=== PATIENT | male | born 1965 | race Caucasian/White ===

== ENCOUNTER 2024-02-22 16:15 | Inpatient (IN) | payer OTHER ==
[2024-02-22 17:44] VITALS: BMI 23.8
[2024-02-22] MEDS ORDERED: IBUPROFEN 400 MG TABLET (FP) PO PRN (20:17)
[2024-02-22] MEDS ORDERED: MAG HYDROX/AL HYDROX/SIMETH 30 ML UNIT-DOSE CUP PO PRN (20:17)
[2024-02-22] MEDS ORDERED: NALOXONE HCL (KLOXXADO) 8 MG SPRAY NS PRN (20:17)
[2024-02-22] MEDS ORDERED: guaiFENesin 600 MG TABLET.ER (FP) PO PRN (20:17)
[2024-02-22] MEDS ORDERED: NALOXONE HCL 0.4 MG/ML VIAL IM PRN (20:17)
[2024-02-22] MEDS ORDERED: LOPERAMIDE HCL 2 MG CAPSULE PO PRN (20:17)
[2024-02-22] MEDS ORDERED: BENZONATATE 200 MG CAPSULE PO PRN (20:17)
[2024-02-22] MEDS ORDERED: BENZOCAINE/MENTHOL (CHLORASEPTIC ) LOZENGE MM PRN (20:17)
[2024-02-23] MEDS ORDERED: TUBERCULIN PPD 5 TU/0.1ML SYRINGE (IN PATIENT USE ONLY) ID ONE (00:18)
[2024-02-23] MEDS ORDERED: MELATONIN 5 MG TABLETS ONE ×2 (00:55→00:58)
[2024-02-23] MEDS: MELATONIN 5 MG TABLETS PO SCH (01:01)
[2024-02-23] MEDS: THIAMINE HCL 100 MG TABLET (FP) PO SCH (01:01)
[2024-02-23] MEDS: CLOTRIMAZOLE 1% CREAM TP SCH (01:16)
[2024-02-23] MEDS: methaDONE 40 MG, methaDONE 30 MG PO SCH (07:36)
[2024-02-23] MEDS: methaDONE HCL 10 MG TABLET PO SCH (07:40)
[2024-02-23] MEDS ORDERED: ALBUTEROL SO4 HFA INHALER IH PRN (08:11)
[2024-02-23] MEDS: PRENATAL VITAMINS W/ FOLIC ACID TABLET (FP) PO SCH (09:09)
[2024-02-23] MEDS: TUBERCULIN PPD 5 TU/0.1ML SYRINGE (IN PATIENT USE ONLY) ID ONE (09:11)
[2024-02-23] MEDS ORDERED: EMPAGLIFLOZIN (JARDIANCE) 10 MG TABLET PO SCH (10:00)
[2024-02-23 12:40] LABS: HEMOGLOBIN 14.5 GM/dL (11.7-16.9); MCHC 32.9 g/dl (32.0-35.9); MEAN CELL VOLUME 94.3 fl (80-96); MEAN PLT VOLUME 9.7 fl (7.5-11.1); PLATELET COUNT 136 10^3/uL (134-434); RBC 4.67 M/mm3 (4.00-5.60); RDW 13.3 % (11.9-15.9); WHITE BLOOD COUNT 4.3 K/mm3 (4.0-10.0)
[2024-02-23 12:43] LABS: POTASSIUM 3.9 mmol/L (3.5-5.1)
[2024-02-23 12:50] LABS: ALBUMIN 3.2 g/dl (3.4-5.0)
[2024-02-23 12:51] LABS: CALCIUM 8.9 mg/dL (8.5-10.1)
[2024-02-23 12:52] LABS: BLOOD UREA NITROGEN 20.7 mg/dL (7-18)
[2024-02-23 12:54] LABS: CREATININE 1.2 mg/dL (0.55-1.3); TOT PROT 6.6 g/dl (6.4-8.2)
[2024-02-23 12:55] LABS: BILIRUBIN,TOTAL 0.7 mg/dL (0.2-1)
[2024-02-23 13:10] LABS: SYPHILIS W/ RPR CONF NON-REACTIVE (NONREACTIVE)
[2024-02-23] MEDS: IBUPROFEN 600 MG TABLET (FP) PO PRN (15:41)
[2024-02-24 12:19] LABS: PH,URINE 5.5 (5.0-8.0); URINE APPEARANCE CLEAR; URINE BILIRUBIN NEGATIVE (NEGATIVE); URINE COLOR YELLOW; URINE GLUCOSE (UA) NEGATIVE (NEGATIVE); URINE KETONE NEGATIVE (NEGATIVE); URINE LEUK ESTERASE NEGATIVE (NEGATIVE); URINE NITRITE NEGATIVE (NEGATIVE); URINE PROTEIN NEGATIVE (NEGATIVE); URINE UROBILINOGEN 0.2 mg/dL (0.2-1.0)
[2024-02-25] MEDS: ACETAMINOPHEN 325 MG TABLET (FP) PO PRN (06:19)
[2024-02-25] MEDS ORDERED: cloNIDine HCL 0.1 MG TABLET PO PRN (08:27)
[2024-02-25] MEDS: cloNIDine HCL 0.1 MG TABLET PO PRN (09:29)
[2024-02-26] MEDS: BENZOCAINE 20 % GEL TUBE MM PRN (10:39)
[2024-02-26] MEDS: FUROSEMIDE 20 MG TABLET (FP) PO SCH (15:02)
[2024-02-29] MEDS: MAGNESIUM HYDROX 2400MG/30ML ORAL SUSPENSION 30 ML CUP PO PRN (12:44)
[2024-02-29] MEDS: POLYETHYLENE GLYCOL (HEALTHYLAX) 3350 17 GM PACKET PO PRN (21:14)
[2024-03-01] MEDS: DOCUSATE SODIUM 100 MG CAPSULE (FP) PO PRN (03:14)
[2024-03-01] MEDS: FUROSEMIDE 40 MG TABLET (FP) PO SCH (15:06)
[2024-03-01] MEDS: BISACODYL 5 MG TABLET.DR (FP) PO PRN (15:41)
[2024-03-01] MEDS: AMOX TR/POT CLAV 500MG/125MG TABLETS (FP) PO SCH (18:05)
[2024-03-03] MEDS: hydrOXYzine PAMOATE 25 MG CAPSULE (FP) PO PRN (21:33)
[2024-03-07 07:02] VITALS: RESP 17; TEMP 98.4
[2024-03-07 09:09] VITALS: BP 127/76; PULSE 83
== END 2024-03-07 09:36 | disposition home or self-care (01) | DRG 772 ==
LOC: YASAS 16:15 → Y3E 23:43
PROVIDERS: ADMIT Allergy & Immunology; ATTEND Psychiatry & Neurology Pain Medicine
PROC: HZ42ZZZ Group Counseling for Substance Abuse Treatment, Cognitive-Behavioral (ICD-10-PCS; principal; 2024-02-22)
DX: F14.20 Cocaine dependence, uncomplicated (principal); F11.20 Opioid dependence, uncomplicated; F12.90 Cannabis use, unspecified, uncomplicated; F41.9 Anxiety disorder, unspecified; K04.7 Periapical abscess without sinus; K59.00 Constipation, unspecified; B18.2 Chronic viral hepatitis C; R60.0 Localized edema; Z99.89 Dependence on other enabling machines and devices
CPT/HCPCS: 36415; 80053; 81003; 85027; 86780; 86803; 87522; 87811; 93005; 93010

== ENCOUNTER 2024-04-08 19:14 | Inpatient (IN) | payer OTHER ==
[2024-04-08 21:25] VITALS: BMI 24.3
[2024-04-08] MEDS ORDERED: DOCUSATE SODIUM 100 MG CAPSULE (FP) PO PRN (22:35)
[2024-04-08] MEDS ORDERED: LOPERAMIDE HCL 2 MG CAPSULE PO PRN (22:36)
[2024-04-08] MEDS ORDERED: BENZONATATE 200 MG CAPSULE PO PRN (22:36)
[2024-04-08] MEDS ORDERED: NALOXONE HCL 0.4 MG/ML VIAL IM PRN (22:36)
[2024-04-08] MEDS ORDERED: NALOXONE HCL (KLOXXADO) 8 MG SPRAY NS PRN (22:36)
[2024-04-08] MEDS ORDERED: P-EPHED 60MG/TRIPROLIDI 2.5MG TABLET PO PRN (22:36)
[2024-04-08] MEDS ORDERED: BENZOCAINE/MENTHOL (CHLORASEPTIC ) LOZENGE MM PRN (22:36)
[2024-04-08] MEDS ORDERED: guaiFENesin 600 MG TABLET.ER (FP) PO PRN (22:36)
[2024-04-09] MEDS: MELATONIN 5 MG TABLETS PO SCH (00:06)
[2024-04-09] MEDS: EMPAGLIFLOZIN (JARDIANCE) 10 MG TABLET PO SCH (09:39)
[2024-04-09] MEDS ORDERED: FUROSEMIDE 40 MG TABLET (FP) PO SCH (10:00)
[2024-04-09] MEDS ORDERED: methaDONE HCL 40 MG DISPERSABLE TABLET PO SCH (10:30)
[2024-04-09 12:17] LABS: POTASSIUM 3.6 mmol/L (3.5-5.1)
[2024-04-09 12:20] LABS: CALCIUM 8.2 mg/dL (8.5-10.1)
[2024-04-09 12:21] LABS: ALBUMIN 3.1 g/dl (3.4-5.0); BLOOD UREA NITROGEN 18.9 mg/dL (7-18); HEMATOCRIT 38.3 % (35.4-49); MCH 31.8 pg (25.7-33.7); MCHC 33.8 g/dl (32.0-35.9); MEAN CELL VOLUME 94.2 fl (80-96); MEAN PLT VOLUME 8.6 fl (7.5-11.1); PLATELET COUNT 119 10^3/uL (134-434); RBC 4.07 M/mm3 (4.00-5.60); RDW 14.1 % (11.9-15.9); WHITE BLOOD COUNT 3.5 K/mm3 (4.0-10.0)
[2024-04-09 12:25] LABS: BILIRUBIN,TOTAL 0.6 mg/dL (0.2-1); TOT PROT 6.5 g/dl (6.4-8.2)
[2024-04-09] MEDS: prednisoLONE ACETATE 1% OPHTH SUSP 5 ML BOTTLE OU SCH (13:46)
[2024-04-09] MEDS: FOLIC ACID 1 MG TABLET (FP) PO SCH (15:57)
[2024-04-09] MEDS: ASPIRIN 81 MG CHEWABLE TABLETS PO SCH (15:57)
[2024-04-09] MEDS: SPIRONOLACTONE 25 MG TABLET PO SCH (17:02)
[2024-04-09 18:24] LABS: PH,URINE 6.5 (5.0-8.0); URINE APPEARANCE CLEAR; URINE BILIRUBIN NEGATIVE (NEGATIVE); URINE COLOR YELLOW; URINE GLUCOSE (UA) NEGATIVE (NEGATIVE); URINE KETONE NEGATIVE (NEGATIVE); URINE LEUK ESTERASE NEGATIVE (NEGATIVE); URINE NITRITE NEGATIVE (NEGATIVE); URINE PROTEIN NEGATIVE (NEGATIVE)
[2024-04-09] MEDS: APIXABAN 5 MG TABLET PO SCH (21:40)
[2024-04-09] MEDS: ATORVASTATIN CA 40 MG TABLET (FP) PO SCH (22:12)
[2024-04-09] MEDS: THIAMINE 100 MG TABLET PO SCH (22:12)
[2024-04-09] MEDS: PRENATAL VITAMINS W/ FOLIC ACID TABLET (FP) PO SCH (22:14)
[2024-04-09] MEDS: FUROSEMIDE 40 MG TABLET (FP) PO SCH (22:49)
[2024-04-10] MEDS: MAGNESIUM HYDROX 2400MG/30ML ORAL SUSPENSION 30 ML CUP PO PRN (13:32)
[2024-04-11] MEDS: POLYETHYLENE GLYCOL (HEALTHYLAX) 3350 17 GM PACKET PO PRN (05:20)
[2024-04-11] MEDS: MOMETASONE FUROATE 220 MCG/IH INHALER IH SCH (21:26)
[2024-04-13 12:44] LABS: HIV INTERPRETATION NEGATIVE (NEGATIVE)
[2024-04-13] MEDS ORDERED: INSULIN (NOVOLOG) ASPART 100 UNITS/ML 10ML VIAL ONE (16:29)
[2024-04-13] MEDS: INSULIN ASPART SLIDING SCALE (NOVOLOG) 1 VIAL SQ SCH (16:30)
[2024-04-14] MEDS ORDERED: INSULIN (NOVOLOG) ASPART 100 UNITS/ML 10ML VIAL ONE ×2 (16:58→19:11)
[2024-04-15] MEDS ORDERED: INSULIN (NOVOLOG) ASPART 100 UNITS/ML 10ML VIAL ONE ×2 (16:32→18:57)
[2024-04-16] MEDS: ALBUTEROL SO4 HFA INHALER IH PRN (16:36)
[2024-04-17] MEDS: ACETAMINOPHEN 325 MG TABLET (FP) PO PRN (14:48)
[2024-04-18] MEDS ORDERED: INSULIN (NOVOLOG) ASPART 100 UNITS/ML 10ML VIAL ONE ×2 (16:57→21:45)
[2024-04-20] MEDS ORDERED: INSULIN (NOVOLOG) ASPART 100 UNITS/ML 10ML VIAL ONE ×2 (16:52→16:55)
[2024-04-22] MEDS ORDERED: INSULIN (NOVOLOG) ASPART 100 UNITS/ML 10ML VIAL ONE ×2 (07:06→16:39)
[2024-04-24] MEDS: MAG HYDROX/AL HYDROX/SIMETH 30 ML UNIT-DOSE CUP PO PRN (12:58)
[2024-04-24] MEDS ORDERED: INSULIN (NOVOLOG) ASPART 100 UNITS/ML 10ML VIAL ONE (16:21)
[2024-04-25 06:24] VITALS: RESP 16; TEMP 97.4
[2024-04-25 09:06] VITALS: BP 129/78; PULSE 104
== END 2024-04-25 09:08 | disposition home or self-care (01) | DRG 772 ==
LOC: YASAS 19:14 → Y3NR 04-09 09:14 → Y3E 04-12 14:06
PROVIDERS: ADMIT Allergy & Immunology; ATTEND Psychiatry & Neurology Pain Medicine
PROC: HZ42ZZZ Group Counseling for Substance Abuse Treatment, Cognitive-Behavioral (ICD-10-PCS; principal; 2024-04-09)
DX: F14.20 Cocaine dependence, uncomplicated (principal); F11.20 Opioid dependence, uncomplicated; F19.282 Other psychoactive substance dependence with psychoactive substance-induced sleep disorder; F41.9 Anxiety disorder, unspecified; I50.9 Heart failure, unspecified; I38 Endocarditis, valve unspecified; E78.5 Hyperlipidemia, unspecified; H53.8 Other visual disturbances; B18.2 Chronic viral hepatitis C; E11.9 Type 2 diabetes mellitus without complications; Z79.84 Long term (current) use of oral hypoglycemic drugs; Z79.899 Other long term (current) drug therapy
CPT/HCPCS: 36415; 80053; 80305; 81003; 82962; 85027; 86780; 86803; 87389; 87522; 87811; 93005; 93010